=== PATIENT | female | born 1965 | race Caucasian/White ===

== ENCOUNTER → 2017-07-02 | Outpatient (CLI) | payer BC | END | disposition home or self-care (01) | LOC: KCIC MRI 08:21 | DX: M51.16 Intervertebral disc disorders with radiculopathy, lumbar region (principal); M25.78 Osteophyte, vertebrae; M43.16 Spondylolisthesis, lumbar region; R20.0 Anesthesia of skin | CPT/HCPCS: 72148 ==

== ENCOUNTER → 2018-09-17 | Outpatient (CLI) | payer BC ==
[~2018-09-17] MED LIST: BUPR100T11 PO; CHOL2000 PO; GABA300C18 PO; LISI1TAB5 PO; MELA3TAB2 PO; MULT1CAP15 PO; OXYC1TAB15 PO; SUDAFED PO; [UNRECOGNIZED DRUG - CODE] PO
[2018-09-17 11:49] LABS: BASO % 0 % (0-3); EOS # 0.1 x10^3/uL (0.0-0.7); EOS % 1 % (0-3); HEMATOCRIT 43.3 % (36.0-47.0); HEMOGLOBIN 14.7 g/dL (12.0-15.5); LYMPH # 3.2 x10^3/uL (1.0-4.8); LYMPH % 35 % (24-48); MEAN CORPUSCULAR HEMOGLOBIN 31 pg (25-35); MEAN CORPUSCULAR HGB CONC 34 g/dL (31-37); MEAN CORPUSCULAR VOLUME 90 fL (79-100); MONO # 0.6 x10^3/uL (0.0-1.1); MONO % 7 % (0-9); NEUT # 5.2 x10^3uL (1.8-7.7); NEUT % 57 % (31-73); PLATELET COUNT 205 x10^3/uL (140-400); RED BLOOD COUNT 4.81 x10^6/uL (3.50-5.40); RED CELL DISTRIBUTION WIDTH 13.8 % (11.5-14.5); WHITE BLOOD COUNT 9.1 x10^3/uL (4.0-11.0)
[2018-09-17 12:07] LABS: ALBUMIN 4.2 g/dL (3.4-5.0); CALCIUM 9.2 mg/dL (8.5-10.1); CREATININE 0.9 mg/dL (0.6-1.0); GFR 65.5; TOTAL BILIRUBIN 0.7 mg/dL (0.2-1.0)
--- NOTE | 2018-09-18 11:48 | NUR ---
FAXED PRE -OP LAB REPORTS TO 'S OFFICE FOR REVIEW AT 1018 09/18/2018 AND RECEIVED TRANSMITTAL CONFIRMATION.
== END | disposition home or self-care (01) ==
LOC: SURGPAT 10:19
PROVIDERS: ATTEND Surgery
DX: Z01.818 Encounter for other preprocedural examination (principal); K80.20 Calculus of gallbladder without cholecystitis without obstruction
CPT/HCPCS: 36415; 80048; 82040; 82247; 85025

== ENCOUNTER 2018-09-24 07:14 | Inpatient (IN) | payer BC ==
[~2018-09-24] VITALS: Ht 167.6 cm; Wt 95.7 kg
[2018-09-24] VITALS (7 sets, daily range): BP systolic 100–127; BP diastolic 61–77
[~2018-09-24 07:14] MED LIST changes: +BUPIVAC MPF-EPI 0.5%-1:200000 30 ML VIAL. ONE; +GLUCAGON,HUMAN RECOMBINANT 1 MG/ML VIAL. ONE; +HYDROmorphone 2 MG/ML VIAL IV PRN; +IOHEXOL 300 MG/ML 100ML VIAL. ONE; +LIDOCAINE 1% PF 2 ML VIAL. ID PRN; +ONDANSETRON PF 4 MG/2 ML VIAL. IV PRN; -OXYC1TAB15 PO; +PROCHLORPERAZINE 10 MG/2 ML VIAL. IV PRN; +SURGICEL HEMOSTAT 4X8 EACH. ONE; +fentaNYL PF VIAL 100 MCG/2 ML VIAL IV PRN
[2018-09-24] MEDS: IV RINGERS,LACTATED 1000ML 1,000 ML IV SCH ×2 (08:07→12:25)
[2018-09-24] MEDS ORDERED: SEVOFLURANE 61 TO 120 MINUTES. IH ONE (08:20)
[2018-09-24] MEDS ORDERED: ONDANSETRON PF 4 MG/2 ML VIAL. ONE (08:20)
[2018-09-24] MEDS ORDERED: GLYCOPYRROLATE 1 MG/5 ML VIAL. ONE (08:20)
[2018-09-24] MEDS ORDERED: DEXAMETHASONE SOD PHOS 20 MG/5 ML VIAL. ONE (08:20)
[2018-09-24] MEDS ORDERED: ROCURONIUM 50 MG/5 ML VIAL. ONE (08:20)
[2018-09-24] MEDS ORDERED: LIDOCAINE 2% PF 5 ML VIAL. ONE (08:20)
[2018-09-24] MEDS ORDERED: PROPOFOL 20 ML IV ONE (08:20)
[2018-09-24] MEDS ORDERED: NEOSTIGMINE METHYLSULFATE 5 MG/5 ML SYRINGE. ONE (08:20)
--- NOTE | 2018-09-24 09:40 | RAD ---
C-arm fluoroscopy with fluoroscopic spot views Clinical indications: Intraoperative cholangiogram. Total fluoroscopic time: 10 seconds. Total fluoroscopic spot views: 2. IMPRESSION: Fluoroscopic spot views demonstrate opacification of a nondilated extrahepatic biliary tree with free flow of contrast material from the common bile duct into the duodenum. No stricture or common bile duct stone is evident. Electronically signed by: Pancho Mcgee MD (09/24/2018 9:37 AM) [id number]
[2018-09-24] MEDS ORDERED: PHENYLEPHRINE in 0.9% NACL PF 1 MG/10 ML SYRINGE. IV ONE (09:58)
[2018-09-24] MEDS: fentaNYL PF VIAL 100 MCG/2 ML VIAL IV PRN ×3 (10:43→11:14)
--- NOTE | 2018-09-24 10:45 | PDOC ---
BRIEF OPERATIVE NOTE Date: Sep 24, 2018 Pre-Op Diagnosis symptomatic cholelithiasis Post-Op Diagnosis same Procedure Performed l/s nicolas with gen Surgeon Blaze Gis Software Engineer Almas CUETO Anesthesia Type: General Blood Loss 150cc IV Fluid 800cc Specimens Obtained GB Findings supple GB, normal grams Complications none Operative Note Wk # [id number] JACQUELINE MACIAS MD Sep 24, 2018 10:45
--- NOTE | 2018-09-24 10:46 | DISCH ---
DISCHARGE INSTRUCTIONS Condition on Discharge Condition on Discharge: Stable Activity After Discharge Activity Instructions for Disc: Activity as tolerated, Avoid exertion Lifting Instructions after Dis: No heavy lifting Driving Instructions after Dis: Do not drive (2-3 days) Diet after Discharge Diet after Discharge: Regular Wound Incision Care Wound/Incision Care: Ice to area for comfort Other wound/incision instructi: october shower Saturday Follow-Up Follow up with: Saturday JACQUELINE MACIAS MD Sep 24, 2018 10:46
[2018-09-24] MEDS: MORPHINE SULFATE 2 MG/ML VIAL. IV PRN ×2 (10:47→10:57)
[2018-09-24] MEDS ORDERED: METOCLOPRAMIDE HCL 10 MG/2 ML VIAL. ONE (11:25)
[2018-09-24] MEDS ORDERED: METOCLOPRAMIDE HCL 10 MG/2 ML VIAL. IV ONE (11:30)
--- NOTE | 2018-09-24 12:01 | OP ---
DATE OF SURGERY: 09/24/2018 PREOPERATIVE DIAGNOSIS: Symptomatic cholelithiasis. POSTOPERATIVE DIAGNOSIS: Symptomatic cholelithiasis. PROCEDURE: Laparoscopic cholecystectomy with cholangiogram. SURGEON: Henok Macias MD VIOLIN TEACHER: NORY Mendez. ANESTHESIA: General endotracheal. ESTIMATED BLOOD LOSS: 150. INTRAVENOUS: 800. INDICATIONS: The patient is a 53-year-old obese female with postprandial pain and an ultrasound showing stones in her gallbladder. She is brought for cholecystectomy. OPERATIVE FINDINGS: The gallbladder was supple and decompressed. Cholangiograms were normal. Visual inspection of the remainder of the abdomen failed to reveal obvious abnormalities. DESCRIPTION OF PROCEDURE: The patient was brought to the operating suite, given a general endotracheal anesthetic and the abdomen prepped and draped in usual sterile fashion. A supraumbilical incision was made, and a 5 x 150 mm Visiport was used to gain access into the abdominal cavity, taking care to avoid injury to abdominal contents. Pneumoperitoneum established. Camera inserted. Inspection carried out. With the table rolled to the left in reverse Trendelenburg, the epigastric, midclavicular and lateral ports were placed under direct vision. The gallbladder was retracted superolaterally and omental adhesions along the inferior surface of the gallbladder were taken down with careful cautery dissection, avoiding injury to the adjacent bowel. The cystic duct and cystic artery were isolated. Cystic duct clipped on the gallbladder side. Cholangiograms were made. These were normal. In light of this, the catheter was removed. The cystic duct was clipped x 3 and divided, taking care to avoid injury or compromise the common duct. The cystic artery was clipped and divided and as dissection freed the gallbladder from the fossa, posterior vessels were similarly clipped and divided. Good hemostasis obtained in the fossa with no evidence of a bile leak. Gallbladder placed in an EndoCatch bag. Table returned to level. Gallbladder delivered through the epigastric incision. Epigastric incision was closed with 0 Vicryl suture. This required extending the skin incision for open closure of the fascia to control some bleeding from the muscle. When hemostasis was present, pneumoperitoneum reestablished. Camera inserted and no evidence of bleeding from the epigastric closure was seen at 6 cm intra-abdominal pressure. A 19-Mauritian round Shaw drain was brought through the lateral port, sewn to the skin with a silk stitch and left in the subhepatic space for postoperative drainage. The midclavicular port removed, no bleeding seen. Abdomen decompressed, camera removed. Skin incisions closed with subcuticular 4-0 Monocryl. Steri-Strips and sterile dressings applied. The patient awakened from her anesthetic and taken to the recovery room in satisfactory condition. HENOK MACIAS MD DR: HEATHER/ramsey JOB#: [id number] / [id number]
[2018-09-24] MEDS ORDERED: OXYC1TAB15 PO (12:41)
[2018-09-24] MEDS ORDERED: oxyCODONE/APAP 5/325 1 TAB TABLET PO ONE (13:15)
--- NOTE | 2018-09-24 13:37 | RAD ---
Portable chest, 09/24/2018: HISTORY: Postop hypoxia, recent cholecystectomy No previous chest radiographs are available at this time for comparison purposes. The heart size and pulmonary vascularity are within normal limits. Minimal pneumomediastinum is noted. There is a suggestion of mild atelectasis/infiltrate medially in the left base obscuring the margin of the descending thoracic aorta. The right lung is clear. There is no evidence of pleural fluid or pneumothorax. IMPRESSION: 1. Minimal pneumomediastinum. 2. Mild atelectasis/infiltrate in the medial left base. Electronically signed by: Francisco J Akers MD (09/24/2018 1:34 PM) [facility]
[2018-09-24 13:40] LABS: BASE EXCESS ABG -1 mmol/L (-3-3); HCO3 ABG 25 mmol/L (21-28); PCO2 ABG 47 mmHg (35-46); PO2 ABG 86 mmHg (75-108); SAT O2 ABG 96 % (92-99)
[2018-09-24 13:41] LABS: FIO2 ABG 28
[2018-09-24] MEDS ORDERED: oxyCODONE/APAP 5/325 1 TAB TABLET PO PRN ×2 (14:15)
[2018-09-24] MEDS ORDERED: HYDROmorphone 2 MG/ML VIAL IV PRN (14:15)
--- NOTE | 2018-09-24 14:42 | CONS ---
DATE OF CONSULTATION: ATTENDING PHYSICIAN: Dr. Thakur. REASON FOR CONSULTATION: Postop hypoxia. HISTORY OF PRESENT ILLNESS: The patient is a 53-year-old who was here for an elective cholecystectomy for symptomatic cholelithiasis. Postoperatively, she required up to 3 liters of oxygen despite 3 hours of observation, as a result I was asked to see her. The patient had 150 mcg of fentanyl, 0.5 mg of Dilaudid and also 2 mg of morphine, in addition Zofran. She is now fully awake. She is following commands. Her arterial blood gases were reviewed. They were adequate with a pO2 in the 80s on 2 liters. As a result, I recommend to reduce it down to 1 liter. Her chest x-ray showed tiny amount of atelectasis in the left base. There was very mild pneumomediastinum. Upon talking to Dr. Thakur, there was no difficulty in intubation. PAST MEDICAL HISTORY: Noncontributory to lungs. No history of tobacco use. No history of asthma. PAST SURGICAL HISTORY: Breast reduction, C-sections and other surgeries. REVIEW OF SYSTEMS: Ten-point system obtained. Pertinent positives discussed in my history of present illness, otherwise noncontributory. The only complaint she has is mild postop pain in the right upper quadrant area. FAMILY HISTORY: Noncontributory to lungs. PHYSICAL EXAMINATION: VITAL SIGNS: Reviewed, stable. NECK: Supple. LUNGS: Clear. CARDIOVASCULAR: Regular rate. ABDOMEN: Soft, mildly tender in the right upper quadrant. EXTREMITIES: With no pitting edema. LABORATORY DATA: Her chest x-ray was reviewed as discussed above. IMPRESSION: 1. Acute Respiratory failure/ Mild postop hypoxia, which corrects with supplemental oxygen, likely related to hypoventilation from the effect of propofol, 150 mcg of fentanyl, Dilaudid and morphine sulfate. Clinically, she is much better, now down to 1 liter of oxygen. She has no significant history of tobacco use. 2. Abnormal chest x-ray with small amount of pneumomediastinum. There is no traumatic intubation. She has small amount of atelectasis involving the left lower lobe, which could be related due to her abdominal process. At this time, I have discussed with Dr. Thakur to monitor her overnight to make sure the pneumomediastinum is resolved. At this time, clinically do not suspect any esophageal perforation or so. 3. No significant history of tobacco use and no significant history of asthma. RECOMMENDATIONS: 1. Continue present oxygen and eventually wean off. Keep saturation 92%-94%. 2. Repeat chest x-ray in the morning , we will do a noncontrast CT chest. 3. Incentive spirometry. 4. Monitor vital signs. 5. Add bronchodilators. 6. Discussed with Dr. Thakur and discussed with RN. cct 30 min RAFY SNYDER MD DR: MARINE/ramsey JOB#: [id number] / [id number] SARAH
--- NOTE | 2018-09-24 15:44 | RAD ---
Examination: CT CHEST WO CONTRAST History: ABD CXR TRISTEN TODAY NO PRV Comparison/Correlation: None Findings: Axial images of the chest were obtained without contrast. Sagittal and coronal reformatted images provided. Tracheobronchial tree is unremarkable. Minimal calcific sulcus atelectasis bilaterally is present. No pleural or pericardial effusion. No pneumothorax. No pneumomediastinum. There is a 0.4 cm diameter noncalcified nodule at the posterior aspect of the left lower lung field. No enlarged thoracic lymph nodes. Thoracic aortic morphology is unremarkable. Bony structures are unremarkable. Nondependent gas within the right upper abdomen is noted and subdiaphragmatic location. Simultaneous gas involving the upper abdomen, epigastric region is present extending to the right upper quadrant. Cholecystectomy noted. Tubing is noted to extend from the right adrenal gland region along the inferior margin the right hepatic lobe and inferiorly beyond the [id number] of this exam. Impression: No pneumomediastinum. No suspicious infiltrate. Minimal gas within the peritoneal cavity and epigastric subcutaneous fat corresponding with cholecystectomy noted. No collection identified at the gallbladder fossa. PQRS Compliance Statement: One or more of the following individualized dose reduction techniques were utilized for this examination: 1. Automated exposure control 2. Adjustment of the mA and/or kV according to patient size 3. Use of iterative reconstruction technique Electronically signed by: Alfredo Beaulieu MD (09/24/2018 3:41 PM) [id number]
[2018-09-24] MEDS ORDERED: oxyCODONE/APAP 5/325 1 TAB TABLET PO SCH (18:00)
--- NOTE | 2018-09-24 18:08 | PDOC1 ---
History and Physical Date of Admission Date of Admission DATE: 09/24/18 TIME: 17:49 Identification/Chief Complaint Chief Complaint post op pneumomediastinum Problems: (1) Mediastinal air Source Source: Chart review, Patient History of Present Illness History of Present Illness 53-year-old femaile with hx of HTN admitted for elective cholecystectomy for symptomatic cholelithiasis. Postoperatively, she needed 3 liters of oxygen. no pulm hx of CHF hx. patient received fentanyl, Dilaudidand morphine. patient alert and awake. ABG done and appropriate. chest x-ray performed which showed mild pneumomediastinum. no difficulty securing an airway pre-procedure. patient states she feels well. currently on 2 liters of 02. mild abdominal discomfort. denies chest pain or sob. given 02 requirements and chest xray findings, patient admitted for overnight obs. Past Medical History Past Medical History HTN Past Surgical History Past Surgical History: Pacemaker Social History ALCOHOL: rare Current Medications Current Medications Current Medications Ondansetron HCl (Zofran) 4 mg PRN Q6HRS PRN IV NAUSEA/VOMITING Last administered on 09/24/18at 11:00; Start 09/24/18 at 07:00; Stop 09/25/18 at 06:59 Fentanyl Citrate (Fentanyl 2ml Vial) 25 mcg PRN Q5MIN PRN IV MILD PAIN; Start 09/24/18 at 07:00; Stop 09/25/18 at 06:59 Fentanyl Citrate (Fentanyl 2ml Vial) 50 mcg PRN Q5MIN PRN IV MODERATE TO SEVERE PAIN Last administered on 09/24/18at 11:14; Start 09/24/18 at 07:00; Stop 09/25/18 at 06:59 Morphine Sulfate (Morphine Sulfate) 1 mg PRN Q10MIN PRN IV SEVERE PAIN Last administered on 09/24/18at 10:57; Start 09/24/18 at 07:00; Stop 09/25/18 at 06:59 Ringer's Solution 1,000 ml @ 30 mls/hr Q24H IV Last administered on 09/24/18at 12:25; Start 09/24/18 at 07:00; Stop 09/24/18 at 18:59 Lidocaine HCl (Xylocaine-Mpf 1% 2ml Vial) 2 ml PRN 1X PRN ID IV START; Start at 07:00; Stop 09/25/18 at 06:59 Hydromorphone HCl (Dilaudid) 0.5 mg PRN Q10MIN PRN IV SEV PAIN, Second choice Last administered on 09/24/18at 11:08; Start 09/24/18 at 07:00; Stop 09/25/18 at 06:59 Prochlorperazine Edisylate (Compazine) 5 mg PACU PRN PRN IV NAUSEA, MRX1 Last administered on 09/24/18at 10:41; Start 09/24/18 at 07:00; Stop 09/25/18 at 06:59 Cefazolin Sodium/ Dextrose 50 ml @ 100 mls/hr 1X PREOP PRN IV PRIOR TO PROCEDURE Last administered on 09/24/18at 08:28; Start 09/24/18 at 06:00; Stop at 18:00 Bupivacaine HCl/ Epinephrine Bitart (Sensorcain-Mpf Epi 0.5%-1:620308) 30 ml STK -MED ONCE .ROUTE Last administered on 09/24/18at 09:03; Start 09/24/18 at 06:50 ; Stop 09/24/18 at 07:50; Status DC Glucagon (Glucagen) 1 mg STK-MED ONCE .ROUTE ; Start 09/24/18 at 06:50; Stop at 07:50; Status DC Iohexol (Omnipaque 300 Mg/ml) 100 ml STK-MED ONCE .ROUTE Last administered on at 09:04; Start 09/24/18 at 06:50; Stop 09/24/18 at 07:50; Status DC Cellulose (Surgicel Hemostat 4x8) 1 each STK-MED ONCE .ROUTE ; Start 09/24/18 at 06:50; Stop 09/24/18 at 07:50; Status DC Propofol 20 ml @ As Directed STK-MED ONCE IV ; Start 09/24/18 at 08:20; Stop at 08:21; Status DC Dexamethasone Sodium Phosphate (Decadron) 20 mg STK-MED ONCE .ROUTE ; Start at 08:20; Stop 09/24/18 at 08:21; Status DC Lidocaine HCl (Lidocaine Pf 2% Vial) 5 ml STK-MED ONCE .ROUTE ; Start 09/24/18 at 08:20; Stop 09/24/18 at 08:21; Status DC Ondansetron HCl (Zofran) 4 mg STK-MED ONCE .ROUTE ; Start 09/24/18 at 08:20; Stop 09/24/18 at 08:21; Status DC Glycopyrrolate (Robinul) 1 mg STK-MED ONCE .ROUTE ; Start 09/24/18 at 08:20; Stop 09/24/18 at 08:21; Status DC Sevoflurane (Ultane) 60 ml STK-MED ONCE IH ; Start 09/24/18 at 08:20; Stop 09/24 at 08:21; Status DC Rocuronium [place] (Zemuron) 50 mg STK-MED ONCE .ROUTE ; Start 09/24/18 at 08:20 ; Stop 09/24/18 at 08:21; Status DC Neostigmine Methylsulfate (Neostigmine Methylsulfate) 5 mg STK-MED ONCE .ROUTE ; Start 09/24/18 at 08:20; Stop 09/24/18 at 08:21; Status DC Phenylephrine HCl (PHENYLEPHRINE in 0.9% NACL PF) 1 mg STK-MED ONCE IV ; Start 09/24/18 at 09:58; Stop 09/24/18 at 09:59; Status DC Metoclopramide HCl (Reglan Vial) 10 mg STK-MED ONCE .ROUTE ; Start 09/24/18 at 11:25; Stop 09/24/18 at 11:26; Status DC Metoclopramide HCl (Reglan Vial) 10 mg 1X ONCE IV Last administered on at 11:31; Start 09/24/18 at 11:30; Stop 09/24/18 at 11:35; Status DC Oxycodone/ Acetaminophen (Percocet 5/325) 1 tab 1X ONCE PO Last administered on 09/24/18at 13:16; Start 09/24/18 at 13:15; Stop 09/24/18 at 13:16; Status DC Potassium Chloride/Sodium Chloride 1,000 ml @ 100 mls/hr Q10H IV ; Start at 14:15 Hydromorphone HCl (Dilaudid) 1 mg PRN Q3HRS PRN IV SEVERE PAIN; Start 09/24/18 at 14:15 Oxycodone/ Acetaminophen (Percocet 5/325) 1 tab PRN Q4HRS PRN PO MILD PAIN, 1ST CHOICE; Start 09/24/18 at 14:15 Oxycodone/ Acetaminophen (Percocet 5/325) 2 tab PRN Q4HRS PRN PO MODERATE PAIN , SEVERE PAIN; Start 09/24/18 at 14:15 Enoxaparin Sodium (Lovenox 40mg Syringe) 40 mg Q24H SQ ; Start 09/25/18 at 09:00 Active Scripts Active Reported Percocet 5-325 Mg Tablet (Oxycodone/Acetaminophen) 1 Each Tablet 1 Tab PO PRN Q4HRS Bupropion Hcl 100 Mg Tablet 300 Mg PO DAILY Vitamin D (Cholecalciferol (Vitamin D3)) 2,000 Unit Capsule 2,000 Unit PO DAILY Gabapentin (Gabapentin) 300 Mg Capsule 300 Mg PO TID Melatonin 3 Mg Tablet 3 Mg PO HS Multivitamins (Multivitamin) 1 Each Capsule 1 Each PO DAILY Lisinopril-Hctz 20-12.5 Mg Tab (Lisinopril/Hydrochlorothiazide) 1 Each Tablet 1 Each PO DAILY Allergies Allergies: Coded Allergies: No Known Drug Allergies (Unverified , 09/24/18) ROS Review of System CONSTITUTIONAL: No fever or chills EYES: No recent changes SKIN: No rash or itching CARDIOVASCULAR: No chest pain, syncope, palpitations, or edema RESPIRATORY: No SOB or cough GASTROINTESTINAL: No nausea, vomiting or abdominal pain NEUROLOGICAL: No headaches or weakness ENDOCRINE: No cold or heat intolerance GENITOURINARY: No urgency or frequency of urination MUSCULOSKELETAL: No back pain or joint pain LYMPHATICS: No enlarged lymph nodes PSYCHIATRIC: No anxiety or depression Physical Exam Physical Exam GENERAL: No apparent distress. Alert and oriented. HEENT: Head normocephalic, atraumatic. NECK: Supple LUNGS: Clear to auscultation. HEART: RRR, S1, S2 present, pulses intact ABDOMEN: Soft, positive bowel sounds. EXTREMITIES: No cyanosis or edema. NEUROLOGIC: Normal speech, normal tone PSYCHIATRIC: Normal affect, normal mood. SKIN: No ulceration. Vitals Vitals Vital Signs Date Time Temp Pulse Resp B/P (MAP) Pulse Ox O2 Delivery O2 Flow Rate FiO2 09/24/18 16:30 55 100/61 (74) 97 Nasal Cannula 2.0 09/24/18 14:40 98.1 17 98.1 Labs Labs Laboratory Tests Test 09/24/18 13:40 O2 Saturation 96 % (92-99) Arterial Blood pH 7.35 (7.35-7.45) Arterial Blood pCO2 at Patient Temp 47 mmHg (35-46) Arterial Blood pO2 at Patient Temp 86 mmHg (75-108) Arterial Blood HCO3 25 mmol/L (21-28) Arterial Blood Base Excess -1 mmol/L (-3-3) FiO2 28 Laboratory Tests Test 09/24/18 13:40 O2 Saturation 96 % (92-99) Arterial Blood pH 7.35 (7.35-7.45) Arterial Blood pCO2 at Patient Temp 47 mmHg (35-46) Arterial Blood pO2 at Patient Temp 86 mmHg (75-108) Arterial Blood HCO3 25 mmol/L (21-28) Arterial Blood Base Excess -1 mmol/L (-3-3) FiO2 28 VTE Prophylaxis Ordered VTE Prophylaxis Devices: No VTE Pharmacological Prophylaxi: No Assessment/Plan Assessment/Plan ASSESSMENT/PLAN Post op Respiratory Insufficiency secondary to hypoventilation from sedation. resolving. on minimal 02. chest xray and CT reassuring. no mediastinum present on CT. no infiltrate seen. wean 02 as tolerated. HTN: continue home meds med rec completed anticipate dc in AM if able to wean off 02 dvt ppx: not indicated given observation and ambulatory status. FULL CODE VERENICE WISDOM MD Sep 24, 2018 18:08
[2018-09-24] MEDS: POTASSIUM CL 20MEQ-0.45% NACL 1,000 ML IV SCH (19:22)
[2018-09-24] MEDS ORDERED: NON FORMULARY ITEM (Melatonin 3 MG) PO SCH (21:00)
[2018-09-24] MEDS: GABAPENTIN 300 MG CAPSULE. PO SCH (21:27)
[2018-09-25] MEDS: POTASSIUM CL 20MEQ-0.45% NACL 1,000 ML IV SCH ×2 (00:15→10:15)
[2018-09-25 03:00] VITALS: BP 117/82
[2018-09-25 04:46] LABS: BASO % 0 % (0-3); EOS % 0 % (0-3); HEMATOCRIT 40.3 % (36.0-47.0); HEMOGLOBIN 13.2 g/dL (12.0-15.5); LYMPH # 2.6 x10^3/uL (1.0-4.8); LYMPH % 23 % (24-48); MEAN CORPUSCULAR HEMOGLOBIN 32 pg (25-35); MEAN CORPUSCULAR HGB CONC 33 g/dL (31-37); MEAN CORPUSCULAR VOLUME 96 fL (79-100); MONO # 0.9 x10^3/uL (0.0-1.1); MONO % 8 % (0-9); NEUT # 7.6 x10^3uL (1.8-7.7); NEUT % 68 % (31-73); PLATELET COUNT 157 x10^3/uL (140-400); RED BLOOD COUNT 4.21 x10^6/uL (3.50-5.40); RED CELL DISTRIBUTION WIDTH 14.1 % (11.5-14.5); WHITE BLOOD COUNT 11.2 x10^3/uL (4.0-11.0)
[2018-09-25 07:00] VITALS: BP 121/82
[2018-09-25] MEDS: GABAPENTIN 300 MG CAPSULE. PO SCH (08:51)
[2018-09-25] MEDS ORDERED: LISINOPRIL PO SCH (09:00)
[2018-09-25] MEDS ORDERED: [UNRECOGNIZED DRUG - OTHER] PO SCH (09:00)
[2018-09-25] MEDS ORDERED: HYDROCHLOROTHIAZIDE PO SCH (09:00)
[2018-09-25] MEDS ORDERED: LISINOPRIL 20 MG TABLET PO SCH (09:00)
[2018-09-25] MEDS ORDERED: hydroCHLOROthiazide 12.5 MG CAPSULE PO SCH (09:00)
[2018-09-25] MEDS ORDERED: CHOLECALCIFEROL (VITAMIN D3) 1,000 UNIT TABLET PO SCH (09:00)
[2018-09-25] MEDS ORDERED: buPROPion XL 150 MG TAB.ER.24H. PO SCH (09:00)
[2018-09-25] MEDS ORDERED: MULTIVITAMIN with MINERAL TABLET. PO SCH (09:00)
[2018-09-25] MEDS ORDERED: ENOXAPARIN 40 MG/0.4 ML SYRINGE. SQ SCH (09:00)
--- NOTE | 2018-09-25 09:05 | RAD ---
Single view of the chest. 09/25/2018 8:14 AM Indication: PNEUMOMEDIASTINUM Comparison: Chest radiograph, yesterday Findings: Patient rotation noted. No radiographic evidence of significant pneumomediastinum is identified. No pneumothorax or pleural effusion is seen. Probable minimal left basilar atelectasis is seen. Bony thorax is grossly intact. IMPRESSION: No significant pneumomediastinum is identified. Electronically signed by: Malik Pearson MD (09/25/2018 9:02 AM) [id number]
--- NOTE | 2018-09-25 09:33 | PDOC ---
JOSE MANUEL HER SALES MERCHANDISING SPECIALIST 09/25/18 0932: SURGICAL PROGRESS NOTE Subjective tolerating diet pain RUQ no n/v no soa Vital Signs Vital Signs Date Time Temp Pulse Resp B/P (MAP) Pulse Ox O2 Delivery O2 Flow Rate FiO2 09/25/18 08:51 52 121/82 09/25/18 07:00 97.5 18 97 Room Air 97.5 09/25/18 03:00 2.0 I&O Intake and Output 09/25/18 06:59 Intake Total 2615 ml Output Total 180 ml Balance 2435 ml Intake Oral 565 ml IV Total 2050 ml Output Drainage Total 30 ml Estimated Blood Loss 150 ml # Voids 6 General: Alert, Oriented X3, Cooperative, No acute distress Abdomen: Soft, Other (lap dressings intact, some bleeding to epigastric site, drain minimal serosang drainage ) Labs Laboratory Tests Test 09/24/18 13:40 09/25/18 03:30 O2 Saturation 96 % (92-99) Arterial Blood pH 7.35 (7.35-7.45) Arterial Blood pCO2 at Patient Temp 47 mmHg (35-46) Arterial Blood pO2 at Patient Temp 86 mmHg (75-108) Arterial Blood HCO3 25 mmol/L (21-28) Arterial Blood Base Excess -1 mmol/L (-3-3) FiO2 28 White Blood Count 11.2 x10^3/uL (4.0-11.0) Red Blood Count 4.21 x10^6/uL (3.50-5.40) Hemoglobin 13.2 g/dL (12.0-15.5) Hematocrit 40.3 % (36.0-47.0) Mean Corpuscular Volume 96 fL (79-100) Mean Corpuscular Hemoglobin 32 pg (25-35) Mean Corpuscular Hemoglobin Concent 33 g/dL (31-37) Red Cell Distribution Width 14.1 % (11.5-14.5) Platelet Count 157 x10^3/uL (140-400) Neutrophils (%) (Auto) 68 % (31-73) Lymphocytes (%) (Auto) 23 % (24-48) Monocytes (%) (Auto) 8 % (0-9) Eosinophils (%) (Auto) 0 % (0-3) Basophils (%) (Auto) 0 % (0-3) Neutrophils # (Auto) 7.6 x10^3uL (1.8-7.7) Lymphocytes # (Auto) 2.6 x10^3/uL (1.0-4.8) Monocytes # (Auto) 0.9 x10^3/uL (0.0-1.1) Eosinophils # (Auto) 0.0 x10^3/uL (0.0-0.7) Basophils # (Auto) 0.0 x10^3/uL (0.0-0.2) Laboratory Tests Test 09/24/18 13:40 09/25/18 03:30 O2 Saturation 96 % (92-99) Arterial Blood pH 7.35 (7.35-7.45) Arterial Blood pCO2 at Patient Temp 47 mmHg (35-46) Arterial Blood pO2 at Patient Temp 86 mmHg (75-108) Arterial Blood HCO3 25 mmol/L (21-28) Arterial Blood Base Excess -1 mmol/L (-3-3) FiO2 28 White Blood Count 11.2 x10^3/uL (4.0-11.0) Red Blood Count 4.21 x10^6/uL (3.50-5.40) Hemoglobin 13.2 g/dL (12.0-15.5) Hematocrit 40.3 % (36.0-47.0) Mean Corpuscular Volume 96 fL (79-100) Mean Corpuscular Hemoglobin 32 pg (25-35) Mean Corpuscular Hemoglobin Concent 33 g/dL (31-37) Red Cell Distribution Width 14.1 % (11.5-14.5) Platelet Count 157 x10^3/uL (140-400) Neutrophils (%) (Auto) 68 % (31-73) Lymphocytes (%) (Auto) 23 % (24-48) Monocytes (%) (Auto) 8 % (0-9) Eosinophils (%) (Auto) 0 % (0-3) Basophils (%) (Auto) 0 % (0-3) Neutrophils # (Auto) 7.6 x10^3uL (1.8-7.7) Lymphocytes # (Auto) 2.6 x10^3/uL (1.0-4.8) Monocytes # (Auto) 0.9 x10^3/uL (0.0-1.1) Eosinophils # (Auto) 0.0 x10^3/uL (0.0-0.7) Basophils # (Auto) 0.0 x10^3/uL (0.0-0.2) Assessment/Plan s/p nicolas on room air, cxr stable likely home today will review with JACQUELINE Car MD 09/25/18 1233: SURGICAL PROGRESS NOTE Assessment/Plan pt seen home today after drain removed f/u next week in [place] office JOSE MANUEL [employer] SAL[employer] MERCHANDISING SPECIALIST Sep 25, 2018 09:32 JACQUELINE MACIAS MD Sep 25, 2018 12:33
--- NOTE | 2018-09-25 10:54 | PDOC ---
PULMONARY PROGRESS NOTES Subjective on RA no soa Vitals Vital Signs Date Time Temp Pulse Resp B/P (MAP) Pulse Ox O2 Delivery O2 Flow Rate FiO2 09/25/18 08:51 52 121/82 09/25/18 07:00 97.5 18 97 Room Air 97.5 09/25/18 03:00 2.0 General: Alert, No acute distress Lungs: Clear Cardiovascular: S1 Abdomen: Soft Neuro Exam: Alert Extremities: No Edema Labs Laboratory Tests Test 09/24/18 13:40 09/25/18 03:30 O2 Saturation 96 % (92-99) Arterial Blood pH 7.35 (7.35-7.45) Arterial Blood pCO2 at Patient Temp 47 mmHg (35-46) Arterial Blood pO2 at Patient Temp 86 mmHg (75-108) Arterial Blood HCO3 25 mmol/L (21-28) Arterial Blood Base Excess -1 mmol/L (-3-3) FiO2 28 White Blood Count 11.2 x10^3/uL (4.0-11.0) Red Blood Count 4.21 x10^6/uL (3.50-5.40) Hemoglobin 13.2 g/dL (12.0-15.5) Hematocrit 40.3 % (36.0-47.0) Mean Corpuscular Volume 96 fL (79-100) Mean Corpuscular Hemoglobin 32 pg (25-35) Mean Corpuscular Hemoglobin Concent 33 g/dL (31-37) Red Cell Distribution Width 14.1 % (11.5-14.5) Platelet Count 157 x10^3/uL (140-400) Neutrophils (%) (Auto) 68 % (31-73) Lymphocytes (%) (Auto) 23 % (24-48) Monocytes (%) (Auto) 8 % (0-9) Eosinophils (%) (Auto) 0 % (0-3) Basophils (%) (Auto) 0 % (0-3) Neutrophils # (Auto) 7.6 x10^3uL (1.8-7.7) Lymphocytes # (Auto) 2.6 x10^3/uL (1.0-4.8) Monocytes # (Auto) 0.9 x10^3/uL (0.0-1.1) Eosinophils # (Auto) 0.0 x10^3/uL (0.0-0.7) Basophils # (Auto) 0.0 x10^3/uL (0.0-0.2) Laboratory Tests Test 09/24/18 13:40 09/25/18 03:30 O2 Saturation 96 % (92-99) Arterial Blood pH 7.35 (7.35-7.45) Arterial Blood pCO2 at Patient Temp 47 mmHg (35-46) Arterial Blood pO2 at Patient Temp 86 mmHg (75-108) Arterial Blood HCO3 25 mmol/L (21-28) Arterial Blood Base Excess -1 mmol/L (-3-3) FiO2 28 White Blood Count 11.2 x10^3/uL (4.0-11.0) Red Blood Count 4.21 x10^6/uL (3.50-5.40) Hemoglobin 13.2 g/dL (12.0-15.5) Hematocrit 40.3 % (36.0-47.0) Mean Corpuscular Volume 96 fL (79-100) Mean Corpuscular Hemoglobin 32 pg (25-35) Mean Corpuscular Hemoglobin Concent 33 g/dL (31-37) Red Cell Distribution Width 14.1 % (11.5-14.5) Platelet Count 157 x10^3/uL (140-400) Neutrophils (%) (Auto) 68 % (31-73) Lymphocytes (%) (Auto) 23 % (24-48) Monocytes (%) (Auto) 8 % (0-9) Eosinophils (%) (Auto) 0 % (0-3) Basophils (%) (Auto) 0 % (0-3) Neutrophils # (Auto) 7.6 x10^3uL (1.8-7.7) Lymphocytes # (Auto) 2.6 x10^3/uL (1.0-4.8) Monocytes # (Auto) 0.9 x10^3/uL (0.0-1.1) Eosinophils # (Auto) 0.0 x10^3/uL (0.0-0.7) Basophils # (Auto) 0.0 x10^3/uL (0.0-0.2) Medications Active Scripts Medications Dose Route/Sig Max Daily Dose Days Date Category Percocet 5-325 Mg Tablet (Oxycodone/Acetaminophen) 1 Each Tablet 1 Tab PO PRN Q4HRS 09/24/18 Reported Bupropion Hcl 100 Mg Tablet 300 Mg PO DAILY 09/17/18 Reported Vitamin D (Cholecalciferol (Vitamin D3)) 2,000 Unit Capsule 2,000 Unit PO DAILY 09/17/18 Reported Gabapentin (Gabapentin) 300 Mg Capsule 300 Mg PO TID 09/17/18 Reported Melatonin 3 Mg Tablet 3 Mg PO HS 09/17/18 Reported Multivitamins (Multivitamin) 1 Each Capsule 1 Each PO DAILY 06/26/13 Reported Lisinopril-Hctz 20-12.5 Mg Tab (Lisinopril/Hydrochlorothiazide) 1 Each Tablet 1 Each PO DAILY 06/26/13 Reported Impression . 1. Acute Respiratory failure/ Mild postop hypoxia, which corrects with supplemental oxygen, likely related to hypoventilation from the effect of propofol, 150 mcg of fentanyl, Dilaudid and morphine sulfate. Clinically, she is much better, now off oxygen She has no significant history of tobacco use. 2. Abnormal chest x-ray with small amount of pneumomediastinum. There is no traumatic intubation. She has small amount of atelectasis involving the left lower lobe, which could be related due to her abdominal process. 3. No significant history of tobacco use and no significant history of asthma. Plan . 1. off oxygen. Keep saturation 92%-94%. 2. Repeat chest x-ray and CT chest with resolved pneumo-mediastinum 3. Incentive spirometry. 4. Discussed with RN / tasneem with RAFY Pizano MD Sep 25, 2018 10:54
[2018-09-25 11:00] VITALS: BP 127/72
--- NOTE | 2018-09-25 12:58 | NUR ---
Discharge instructions and belongings reviewed with patient verbalized understanding. Patient escorted out of hospital via wheelchair by Esther PEREZ accompanied by her and son.
--- NOTE | 2018-09-25 16:06 | PATHOLOGY ---
[facility] Accession Number: [id number] . 01 Material submitted: . gallbladder - GALLBLADDER . 01 Clinical history: . Symptomatic Cholelithiasis . 02 Diagnosis: Gallbladder, cholecystectomy: - Chronic cholecystitis, mild. - Cholelithiasis. - Adjacent lymph node with no significant histopathologic diagnosis. (SKM:patric; 09/25/2018) MBR/09/25/2018 . 02 Electronically signed: . Ruben Banuelos MD, Pathologist NPI- [id number] . 01 Gross description: . The specimen is received in formalin, labeled "Jocelyn Foster, gallbladder, is an intact gallbladder measuring 12.4 x 3.0 x 2.6 cm with a glistening, smooth, mann-purple serosa. Within the gallbladder neck there is a mann-pink, rubbery lymph node measuring 1.2 x 0.5 x 0.4 cm. The lumen is filled with yellow-green viscous bile admixed with an oval irregularly surfaced dark green-brown calculs measuring 4.4 x 2.2 x 2.0 cm. A irregular similar calculus is also present measuring 1.0 x 0.7 x 0.2 cm. The mucosa is denuded towards the fundus showing a trabeculated pattern. The remaining mucosa is mann-brown and granular and the wall has an average thickness of 0.1 cm. No discrete masses are identified. Branch Account Manager tissue is submitted in A1. ([facility]; 09/24/2018) SHS/SHS . 02 Pathologist provided ICD-10: K80.10 . 02 CPT . 581077 Specimen Comment: A courtesy copy of this report has been sent to Specimen Comment: [phone], . Specimen Comment: Report sent to / DR RUTLEDGE Performed at: 01 [facility] [address], [place], [place] [id number] MD Arturo Thompson MD Phone: [phone] Performed at: 02 [facility] [address] [place], [place] [id number] MD Ladarius Toro MD Phone: [phone]
== END 2018-09-25 13:02 | disposition home or self-care (01) | DRG 417 ==
LOC: SURG 07:14 → 4 NORTH 15:23
PROVIDERS: ADMIT Surgery; ATTEND Surgery
PROC: BF131ZZ Fluoroscopy of Gallbladder and Bile Ducts using Low Osmolar Contrast (ICD-10-PCS; 2018-09-24)
PROC: 0FT44ZZ Resection of Gallbladder, Percutaneous Endoscopic Approach (ICD-10-PCS; principal; 2018-09-24 08:45)
DX: K80.20 Calculus of gallbladder without cholecystitis without obstruction (principal); J96.01 Acute respiratory failure with hypoxia; J98.11 Atelectasis; E66.9 Obesity, unspecified; I10 Essential (primary) hypertension; K66.0 Peritoneal adhesions (postprocedural) (postinfection); J98.2 Interstitial emphysema; Z68.34 Body mass index [BMI] 34.0-34.9, adult; T41.295A Adverse effect of other general anesthetics, initial encounter; T40.4X5A Adverse effect of other synthetic narcotics, initial encounter
CPT/HCPCS: 36415; 71045; 71250; 74300; 82805; 85025; 88304; A7015; J0780; J1100; J1170; J1610; J2001; J2270; J2370; J2405; J2704; J2710; J2765; J3010; J3490; J7030; Q9967

== ENCOUNTER → 2020-11-24 | Day surgery (SDC) | payer BC ==
[~2020-11-24] VITALS: Ht 167.6 cm; Wt 91.0 kg
[~2020-11-24] MED LIST changes: -BUPIVAC MPF-EPI 0.5%-1:200000 30 ML VIAL. ONE; -GLUCAGON,HUMAN RECOMBINANT 1 MG/ML VIAL. ONE; -HYDROmorphone 2 MG/ML VIAL IV PRN; -IOHEXOL 300 MG/ML 100ML VIAL. ONE; -LIDOCAINE 1% PF 2 ML VIAL. ID PRN; +LIDOCAINE 1%/EPI 1:100,000 20 ML VIAL. INJ ONE; +LIDOCAINE 1%/EPI 1:100,000 20 ML VIAL. ONE; +LISI1TAB37 PO; -LISI1TAB5 PO; -MELA3TAB2 PO; +MELA3TAB4 PO; -ONDANSETRON PF 4 MG/2 ML VIAL. IV PRN; +OXYC1TAB15 PO; -PROCHLORPERAZINE 10 MG/2 ML VIAL. IV PRN; -SURGICEL HEMOSTAT 4X8 EACH. ONE; -fentaNYL PF VIAL 100 MCG/2 ML VIAL IV PRN
[2020-11-24 12:10] VITALS: BP 118/69
--- NOTE | 2020-11-24 12:59 | PDOC4 ---
Operative Note Operative Note Date: November 24, 2020 at 1257 Preoperative diagnosis: Infected sebaceous cyst of the back Postoperative diagnosis: Same Procedure: Incision and drainage of abscess mid back Surgeon: César Specimen: Back mass Dictation: Patient is a 55-year-old female is complaining of enlarging mass on her mid back and pain and redness. Procedure of incision and drainage of mass was explained to the patient detail risk-benefit were also discussed including bleeding infection alternatives this procedure also discussed with the patient who seemed to understand and gave a verbal written consent to have the procedure performed. Patient was taken to the minors room placed in the prone positioning area of around the mass was prepped and draped in usual sterile fashion using ChloraPrep. Area over the mass was injected with 1% lidocaine with epinephrine once this was complete incision was made with 15 blade scalpel over the mass expressing copious amounts of purulent material. The cyst capsule was was removed and the wound was packed with quarter inch Nu Gauze. Dressed with 4 x 4's and Medipore tape. Patient tolerated procedure well was discharged home in stable condition all sponge instrument needle counts listed as correct estimated blood loss 10 mL JULIANA WASHINGTON MD Nov 24, 2020 12:59
--- NOTE | 2020-11-24 13:01 | DISCH ---
DISCHARGE INSTRUCTIONS Condition on Discharge Condition on Discharge: Stable Activity After Discharge Activity Instructions for Disc: Activity as tolerated Other activity instructions: May shower in 24 hours Diet after Discharge Diet after Discharge: Regular Wound Incision Care Wound/Incision Care: May get incision wet Other wound/incision instructi: Dressing change daily with wound packing Contacting the DRLeigha after DC Call your doctor for: If your condition worsens Follow-Up Follow up with: Dr. Washington in 2 weeks Treatment/Equipment after DC Adaptive Equipment Issued: None JULIANA WASHINGTON MD Nov 24, 2020 13:01
--- NOTE | 2020-11-28 19:18 | PATHOLOGY ---
[facility] Accession Number: [id number] . 01 Material submitted: . back - MID BACK ABCESS. Modifiers: mid . 01 Clinical history: . EXCISION OF MID BACK MASS . 02 Diagnosis: Mid back mass excision: - Keratinaceous material with focal acute inflammation, consistent with acutely inflamed epidermal inclusion cyst. (JPM:serena; 11/28/2020) QMS 11/28/2020 1022 Local . 02 Electronically signed: . Ladarius Toro MD, Pathologist NPI- [id number] . 01 Gross description: . Received in formalin labeled "Deherrera, Jocelyn, mid back abscess" are multiple irregular segments of mann-white soft tissue measuring in aggregate 1.4 x 0.6 x 0.3 cm. The specimen is entirely submitted in cassette A1.([facility]; 11/25/2020) GZA/GZA 11/28/2020 1021 Local . 02 Pathologist provided ICD-10: L08.9 . 02 CPT . 560550 Specimen Comment: A courtesy copy of this report has been sent to [phone] Specimen Comment: [phone] Specimen Comment: Report sent to / DR RUTLEDGE Specimen Comment: A duplicate report has been generated due to demographic updates. Performed at: 01 [facility] [address], [place] [id number] MD Juan Luis Raphael MD Phone: [phone] Performed at: 02 [facility] [address] [place], [place] [id number] MD Ladarius Toro MD Phone: [phone]
== END | disposition home or self-care (01) ==
LOC: SURG 12:18
PROVIDERS: ATTEND Surgery
DX: L72.3 Sebaceous cyst (principal); L08.9 Local infection of the skin and subcutaneous tissue, unspecified; I10 Essential (primary) hypertension; M19.90 Unspecified osteoarthritis, unspecified site; F32.9 Major depressive disorder, single episode, unspecified; E66.9 Obesity, unspecified; Z90.49 Acquired absence of other specified parts of digestive tract; Z98.890 Other specified postprocedural states; Z79.899 Other long term (current) drug therapy; Z98.51 Tubal ligation status; Z72.89 Other problems related to lifestyle
CPT/HCPCS: 10061; 88304; J3490

== ENCOUNTER → 2021-01-27 | Day surgery (SDC) | payer BC ==
[~2021-01-27] VITALS: Ht 167.6 cm; Wt 94.1 kg
[~2021-01-27] MED LIST changes: +AMOX1TAB61 PO; +CELE100C PO; +CETI10TA74 PO; +IV RINGERS,LACTATED 1000ML 1,000 ML IV ONE; -LIDOCAINE 1%/EPI 1:100,000 20 ML VIAL. INJ ONE; -LIDOCAINE 1%/EPI 1:100,000 20 ML VIAL. ONE; +METH2.5T PO; +PROPOFOL 10 MG/ML (20ML) VIAL. IV ONE
[2021-01-27 08:15] VITALS: BP 132/82
--- NOTE | 2021-01-27 10:10 | HP ---
ADMIT DATE: 01/27/2021 UPDATED HISTORY AND PHYSICAL REFERRING PHYSICIAN: GENO Cruz HISTORY OF PRESENT ILLNESS: A 55-year-old female whose past medical history is significant for osteoarthritis, hypertension, who is seen for screening colon exam. Bowel habits are regular without diarrhea or constipation. There has been no melena and/or hematochezia. Weight and appetite are stable and she is otherwise without additional complaints. PAST MEDICAL HISTORY: Rheumatoid arthritis, hypertension, status post breast surgery, , tonsillectomy, tubal ligation, cholecystectomy. ALLERGIES: None. MEDICATIONS: Include Augmentin, bupropion, Celebrex, Zyrtec, vitamin D3, gabapentin, lisinopril, hydrochlorothiazide, methotrexate, multivitamin, oxycodone. FAMILY AND SOCIAL HISTORY: Significant for hypertension in multiple family members. She is a social drinker, nonsmoker. PAST SURGICAL HISTORY: As stated. REVIEW OF SYSTEMS: Per records. PHYSICAL EXAMINATION: GENERAL: Reveals a well-nourished, well-developed female who is alert, cooperative, in no acute distress. VITAL SIGNS: Temp 97.9, pulse 72, respiratory rate 18. LUNGS: Clear. CARDIOVASCULAR: Reveals S1, S2, without S3, S4 or appreciable murmur. ABDOMEN: Reveals a soft abdomen, normal bowel sounds, appreciable hepatosplenomegaly. Multiple surgical incisions are noted. IMPRESSION: Colorectal screening is warranted at this time. Risks and benefits have previously been discussed with the patient including risk of hemorrhage and perforation and is willing to proceed at this time. EMIR DR: Melba TID: [id number]
[2021-01-27 10:20] VITALS: BP 113/79
--- NOTE | 2021-01-31 09:11 | PATHOLOGY ---
[facility] Accession Number: [id number] . 01 Material submitted: . sigmoid colon - SIGMOID POLYP . 01 Clinical history: . CRC COLON POLYP CRC SCREENING . 02 Diagnosis: Sigmoid colon polypectomy: - Tubulovillous adenoma, predominantly tubular. ([facility]; 01/30/2021) [facility] 01/30/2021 1656 Local . 02 Comment: There is no high-grade dysplasia or evidence of malignancy. ([facility]; 01/30/2021) . 02 Electronically signed: . Ladarius Toro MD, Pathologist NPI- [id number] . 01 Gross description: . Received in formalin labeled "Derera, Jocelyn, sigmoid polyp" is a mann-brown nodular mucosal polyp received in 2 pieces measuring in aggregate 2.3 x 2.2 x 1.2 cm. The resection margins are inked black. The pieces are serially sectioned and submitted entirely in cassettes A1-A2. ([facility]; 01/28/2021) [facility] 01/28/2021 1116 Local . 02 Pathologist provided ICD-10: D12.5 . 02 CPT . 238006 Specimen Comment: A courtesy copy of this report has been sent to [phone] Specimen Comment: [phone] Specimen Comment: Report sent to / DR CAMACHO Performed at: 01 [facility] [address], [place] [id number] MD Juan Luis Raphael MD Phone: [phone] Performed at: 02 [facility] [address] [place], [place] [id number] MD Ladarius Toro MD Phone: [phone]
== END | disposition home or self-care (01) ==
LOC: ENDOS 07:56
PROVIDERS: ATTEND Internal Medicine Gastroenterology
DX: Z12.11 Encounter for screening for malignant neoplasm of colon (principal); D12.5 Benign neoplasm of sigmoid colon; K64.0 First degree hemorrhoids; K63.89 Other specified diseases of intestine; I10 Essential (primary) hypertension; E66.9 Obesity, unspecified; F32.9 Major depressive disorder, single episode, unspecified; M06.9 Rheumatoid arthritis, unspecified; Z90.49 Acquired absence of other specified parts of digestive tract; Z98.51 Tubal ligation status; Z98.890 Other specified postprocedural states; Z79.899 Other long term (current) drug therapy; Z72.89 Other problems related to lifestyle
CPT/HCPCS: 45385; J2704